=== PATIENT | male | born 1950 | race Caucasian/White ===

== ENCOUNTER 2024-03-01 06:15 | Emergency (ER) | payer MEDICARE, OTHER ==
[~2024-03-01] VITALS: Ht 170.2 cm; Wt 94.4 kg
[2024-03-01] MEDS ORDERED: ISOVUE-370 76% 100ML VIAL As Ordered ONE (08:00)
[2024-03-01 08:08] LABS: BASO # 0.1 10^3/uL (0.0-0.2); BASO % 0.7 % (0.0-1.0); EOS # 0.2 10^3/uL (0.0-0.5); EOS % 2.8 % (0.0-3.0); HEMATOCRIT 50.7 % (42.0-52.0); HEMOGLOBIN 17.1 g/dl (13.5-17.5); LYMPH # 1.2 10^3/uL (1.5-5.0); MEAN CORPUSCULAR HEMOGLOBIN 28.3 pg (27.0-33.0); MEAN CORPUSCULAR HGB CONC 33.7 g/dl (32.0-36.5); MEAN CORPUSCULAR VOLUME 83.9 fl (80.0-96.0); MONO # 0.7 10^3/uL (0.0-0.8); MONO % 8.5 % (2.0-8.0); NEUTROPHILS # 6.1 10^3/uL (1.5-8.5); NEUTROPHILS % 73.5 % (36.0-66.0); PLATELET COUNT, AUTOMATED 210 10^3/uL (150-450); RED BLOOD COUNT 6.04 10^6/uL (4.30-6.10); WHITE BLOOD COUNT 8.3 10^3/uL (4.0-10.0)
[2024-03-01 08:13] LABS: ERYTHROCYTE SEDIMENTATION RATE 20 mm/hr (0-20)
[2024-03-01 08:25] LABS: INR 0.93; PARTIAL THROMBOPLASTIN TIME 32.3 SECONDS (24.8-34.2); PROTHROMBIN TIME 12.2 SECONDS (12.5-14.5)
[2024-03-01 08:29] LABS: C REACTIVE PROTEIN QUANTITATIV < 0.40 MG/DL (<1.0)
[2024-03-01 08:36] LABS: ALBUMIN 4.3 G/DL (3.2-5.2); ALKALINE PHOSPHATASE 123 U/L (46-116); ALT/SGPT 23 U/L (7.0-40); AST/SGOT 16 U/L (<34); BILIRUBIN,DIRECT 0.2 MG/DL (<0.4); BILIRUBIN,TOTAL 0.7 MG/DL (0.3-1.2); BLOOD UREA NITROGEN 18 MG/DL (9-23); CALCIUM LEVEL 9.2 MG/DL (8.3-10.6); CARBON DIOXIDE LEVEL 26 MMOL/L (20-31); CHLORIDE LEVEL 102 MMOL/L (98-107); CREATININE FOR GFR 0.85 MG/DL (0.70-1.30); GLOMERULAR FILTRATION RATE > 60.0 (>42); GLUCOSE, FASTING 180 MG/DL (74-106); POTASSIUM SERUM 4.2 MMOL/L (3.5-5.1); SODIUM LEVEL 135 MMOL/L (136-145); TOTAL PROTEIN 7.1 G/DL (5.7-8.2)
[2024-03-01] MEDS ORDERED: PERC5TAB12 PO (09:46)
[2024-03-01 10:24] VITALS: BP 156/76; TEMP 96.7; O2SAT 98
== END 2024-03-01 10:27 | disposition home or self-care (01) ==
LOC: M ED 06:15
DX: M54.30 Sciatica, unspecified side (principal); E11.9 Type 2 diabetes mellitus without complications; I10 Essential (primary) hypertension; E78.00 Pure hypercholesterolemia, unspecified; Z87.442 Personal history of urinary calculi
CPT/HCPCS: 36415; 72131; 74178; 76870; 80047; 80048; 80076; 81001; 83605; 85025; 85610; 85652; 85730; 86140; 93976; 99284; Q9967

== ENCOUNTER → 2024-03-28 | Outpatient (CLI) | payer MEDICARE ==
[~2024-03-28] MED LIST: PERC5TAB12 PO
== END ==
LOC: M PLARAD 09:42
PROVIDERS: ATTEND Orthopaedic Surgery
DX: M54.59 Other low back pain (principal)

== ENCOUNTER → 2024-04-04 | Outpatient (CLI) | payer MEDICARE | LOC: M SOG 07:57 | PROVIDERS: ATTEND Orthopaedic Surgery | DX: M47.27 Other spondylosis with radiculopathy, lumbosacral region (principal) ==